=== PATIENT | female | born 1945 | race Two or more races ===

== ENCOUNTER 2017-08-14 08:57 | Inpatient (IN) | payer MEDICAID ==
[~2017-08-14] VITALS: Ht 157.5 cm; Wt 67.1 kg
[~2017-08-14 08:57] MED LIST: AMLODIPINE BESYL5 MG ORAL; AMOX TR-K CLV1 EAC2 ORAL; ASPIRIN-LOW81 MG ORAL; ATORVASTATIN CA10 MG ORAL; AZATHIOPRINE50 MG PO; CALCIUM 1,0001 EAC1 PO; CALCIUM600 M1 PO; DIOVAN160 MG ORAL; FOSAMAX70 MG ORAL; MAGNESIUM250 M3 PO; PREDNISONE2.5 MG ORAL; VITAMIN D1000 UNI1 ORAL
--- NOTE | 2017-08-14 09:29 | Emergency Room Report ---
History of Present Illness General Chief Complaint: General Complaint Source: Patient, Family Member Present Illness HPI Patient is 72-year-old female brought in by family member after increased generalized weakness. Patient prior history of autoimmune hepatitis. She is taking azathioprinel. Patient presented after increased fever. She had reportedly been having subjective fever and increased difficulty breathing. She prior history of pacemaker placement. She had reportedly had not been vomiting. Patient followed by Dr. Stratton Allergies: Coded Allergies: Beef (Verified Allergy, Severe, itchyness, 01/22/16) HYDROCHLOROTHIAZIDE (Verified Allergy, Severe, ELECTROLYTE IMBALANCE, ) Pork (Verified Allergy, Severe, itchyness, 01/22/16) CITRUS AND DERIVATIVES (Unverified Allergy, Mild, ITCHINESS, 07/31/14) Shrimp (Unverified Allergy, Mild, ITCHINESS, 07/31/14) Uncoded Allergies: EGGPLANT (Allergy, Mild, ITCHINESS, 07/31/14) Patient History Past Medical History: see triage record Last Menstrual Period: Post Reviewed Nursing Documentation: PMH: Agreed, PSxH: Agreed Nursing Documentation-PMH Hx Cardiac Problems: Yes - Rhythm irregularity? Pacemaker to left chest, 2016. Hx Hypertension: Yes Hx Cancer: No Hx Gastrointestinal Problems: Yes - Autoimmune hepatitis. Hx Neurological Problems: No Review of Systems All Other Systems: negative except mentioned in HPI Physical Exam Vital Signs Date Time Temp Pulse Resp B/P (MAP) Pulse Ox O2 Delivery O2 Flow Rate FiO2 08/14/17 09:12 98.4 71 19 162/77 99 Room Air Sp02 EP Interpretation: reviewed, normal General Appearance: normal inspection, alert, Chronically Ill Head: atraumatic ENT: normal ENT inspection, hearing grossly normal, normal voice Neck: normal inspection, full range of motion, supple, no bony tend Respiratory: normal inspection, lungs clear, normal breath sounds, no respiratory distress, no retraction, no wheezing Cardiovascular #1: regular rate, rhythm, no edema Gastrointestinal: normal inspection, normal bowel sounds, non tender, soft, no guarding, no hernia Genitourinary: no CVA tenderness Musculoskeletal: normal inspection, back normal, normal range of motion Neurologic: normal inspection, alert, oriented x3, responsive, speech normal Psychiatric: normal inspection, judgement/insight normal, mood/affect normal Skin: normal inspection, normal color, no rash Medical Decision Making Diagnostic Impression: Primary Impression: Generalized weakness Additional Impressions: Autoimmune disease of liver Elevated troponin I level ER Course Patient presented for generalized weakness. Differential diagnosis included was not limited to anemia, urinary tract infection, electrolyte abnormality, hypothyroidism, myocardial infarction, myasthenia gravis, dehydration, among others. Because of complexity of patient's case laboratory testing and imaging studies were ordered.Patient noted have generalized weakness. Patient's laboratory testing was notable for indeterminate level troponin. I EKG interpreted by me showed atrial paced rhythm with rate [address] or T wave changes.Dr. Quinton Stratton was contacted for inpatient management due to primary care physician. Labs Test 08/14/17 10:12 White Blood Count 6.0 K/UL (4.8-10.8) Red Blood Count 3.84 M/UL (4.20-5.40) Hemoglobin 13.2 G/DL (12.0-16.0) Hematocrit 40.2 % (37.0-47.0) Mean Corpuscular Volume 105 FL (80-99) Mean Corpuscular Hemoglobin 34.3 PG (27.0-31.0) Mean Corpuscular Hemoglobin Concent 32.8 G/DL (32.0-36.0) Red Cell Distribution Width 12.5 % (11.6-14.8) Platelet Count 148 K/UL (150-450) Mean Platelet Volume 9.4 FL (6.5-10.1) Neutrophils (%) (Auto) 66.0 % (45.0-75.0) Lymphocytes (%) (Auto) 14.8 % (20.0-45.0) Monocytes (%) (Auto) 16.7 % (1.0-10.0) Eosinophils (%) (Auto) 1.0 % (0.0-3.0) Basophils (%) (Auto) 1.5 % (0.0-2.0) Urine Color Pale yellow Urine Appearance Clear Urine pH 5 (4.5-8.0) Urine Specific [place] 1.005 (1.005-1.035) Urine Protein 2+ (NEGATIVE) Urine Glucose (UA) Negative (NEGATIVE) Urine Ketones Negative (NEGATIVE) Urine Occult Blood Negative (NEGATIVE) Urine Nitrite Negative (NEGATIVE) Urine Bilirubin Negative (NEGATIVE) Urine Urobilinogen Normal MG/DL (0.0-1.0) Urine Leukocyte Esterase Negative (NEGATIVE) Urine RBC 0-2 /HPF (0 - 2) Urine WBC 0-2 /HPF (0 - 2) Urine Squamous Epithelial Cells Few /LPF (NONE/OCC) Urine Bacteria Occasional /HPF (NONE) Sodium Level 130 MMOL/L (136-145) Potassium Level 4.5 MMOL/L (3.5-5.1) Chloride Level 98 MMOL/L (98-107) Carbon Dioxide Level 28 MMOL/L (21-32) Blood Urea Nitrogen 34 mg/dL (7-18) Creatinine 1.5 MG/DL (0.55-1.30) Estimat Glomerular Filtration Rate mL/min (>60) Glucose Level 127 MG/DL (74-106) Lactic Acid Level 1.20 mmol/L (0.66-2.22) Calcium Level 8.1 MG/DL (8.5-10.1) Total Bilirubin 0.9 MG/DL (0.2-1.0) Aspartate Amino Transf (AST/SGOT) 37 U/L (15-37) Alanine Aminotransferase (ALT/SGPT) 29 U/L (12-78) Alkaline Phosphatase 102 U/L (46-116) Total Creatine Kinase 199 U/L (26-308) Creatine Kinase MB 5.0 NG/ML (0.0-3.6) Creatine Kinase MB Relative Index 2.5 Troponin I 0.271 ng/mL (0.000-0.056) Pro-B-Type Natriuretic Peptide 412 pg/mL (0-125) Total Protein 8.4 G/DL (6.4-8.2) Albumin 3.3 G/DL (3.4-5.0) Globulin 5.1 g/dL Albumin/Globulin Ratio 0.6 (1.0-2.7) EKG Diagnostic Results Rate: normal ST Segments: no acute changes Last Vital Signs Date Time Temp Pulse Resp B/P (MAP) Pulse Ox O2 Delivery O2 Flow Rate FiO2 08/14/17 09:12 98.4 71 19 162/77 99 Room Air Status: unchanged Disposition: ADMITTED INPATIENT Condition: Serious Referrals: Quinton Stratton MD (PCP) Robert Ball Aug 14, 2017 09:29
[2017-08-14] MEDS ORDERED: HYDRALAZINE HCL50 MG ORAL (09:34)
[2017-08-14] MEDS ORDERED: TOBRAMYCIN-DEXAM5 M1 BOTH EYES (09:34)
[2017-08-14] MEDS ORDERED: CARVEDILOL6.25 MG ORAL (09:34)
[2017-08-14] MEDS ORDERED: AZATHIOPRINE50 MG PO (09:34)
[2017-08-14] MEDS ORDERED: ACULAR5 ML BOTH EYES (09:34)
[2017-08-14] MEDS ORDERED: BACITRACIN-POL3.5 GM OP (09:34)
[2017-08-14 09:45] VITALS: BP 163/51
--- NOTE | 2017-08-14 10:32 | Diagnostic Imaging Report ---
Indication: Reason For Exam: SOB Technique: XRAY Chest 1v Comparison:None Findings: Heart is normal in size. A pacemaker is in place. There is calcified. There is marked bronchial wall thickening and interstitial change. No pleural fluid. The bones are osteopenic. Degenerative changes noted in both shoulders. Impression: Osteopenia. Mild interstitial change. This could be acute or chronic. Old films would be helpful. Pacemaker. Degenerative change in both shoulders.
[2017-08-14 10:36] LABS: BASOPHILS % (AUTO) 1.5 % (0.0-2.0); LYMPHOCYTES % (AUTO) 14.8 % (20.0-45.0); MEAN CORPUSCULAR HEMOGLOBIN 34.3 PG (27.0-31.0); MEAN CORPUSCULAR HGB CONC 32.8 G/DL (32.0-36.0); MEAN CORPUSCULAR VOLUME 105 FL (80-99); MEAN PLATELET VOLUME 9.4 FL (6.5-10.1); MONOCYTES % (AUTO) 16.7 % (1.0-10.0); PLATELET COUNT 148 K/UL (150-450); RED BLOOD COUNT 3.84 M/UL (4.20-5.40); RED CELL DISTRIBUTION WIDTH 12.5 % (11.6-14.8)
[2017-08-14 10:40] LABS: APPEARANCE,URINE CLEAR; KETONES,URINE NEGATIVE (NEGATIVE); LEUKOCYTE ESTERASE ,URINE NEGATIVE (NEGATIVE); NITRITE,URINE NEGATIVE (NEGATIVE); PH,URINE 5 (4.5-8.0); PROTEIN,URINE 2+ (NEGATIVE); UROBILINOGEN,URINE NORMAL MG/DL (0.0-1.0)
[2017-08-14 10:48] LABS: RBC,URINE 0-2 /HPF (0 - 2)
[2017-08-14 10:49] LABS: BACTERIA,URINE OCCASIONAL /HPF; SQUAMOUS EPITHELIAL CELL,UR FEW /LPF (NONE/OCC); WBC,URINE 0-2 /HPF (0 - 2)
[2017-08-14 11:03] LABS: ALANINE AMINOTRANSFERASE 29 U/L (12-78); ALBUMIN/GLOBULIN RATIO 0.6 (1.0-2.7); ASPARTATE AMINO TRANSFERASE 37 U/L (15-37); CALCIUM 8.1 MG/DL (8.5-10.1); CARBON DIOXIDE 28 MMOL/L (21-32); CHLORIDE 98 MMOL/L (98-107); CREATININE 1.5 MG/DL (0.55-1.30); POTASSIUM 4.5 MMOL/L (3.5-5.1); SODIUM 130 MMOL/L (136-145); TOTAL PROTEIN 8.4 G/DL (6.4-8.2)
[2017-08-14 13:10] VITALS: BP 149/80
[2017-08-14] MEDS ORDERED: Enalaprilat 2.5mg/2ml Inj IV ONE (15:30)
[2017-08-14 16:30] VITALS: BP 123/51
[2017-08-14 20:00] VITALS: BP 139/61
[2017-08-14] MEDS ORDERED: Milk of Magnesia 30ml Ud ORAL PRN (21:00)
[2017-08-14] MEDS ORDERED: Acetaminophen 650 MG SUPP RECTAL PRN (21:00)
[2017-08-14] MEDS ORDERED: Zolpidem 5mg tab ORAL PRN (21:00)
[2017-08-14] MEDS ORDERED: Miralax 17gm pkt ORAL PRN (21:00)
[2017-08-14] MEDS ORDERED: Nitroglycerin Subl 0.4mg tab SL PRN (21:00)
[2017-08-14] MEDS: Tobradex Opth Susp 2.5ml BOTH EYES SCH (23:00)
[2017-08-14] MEDS: Docusate 100mg cap ORAL SCH (23:00)
[2017-08-14] MEDS: HydrALAZINE 50mg tab ORAL SCH (23:00)
[2017-08-14] MEDS: Heparin 5000 units/ml inj SUBQ SCH (23:00)
[2017-08-14] MEDS: Carvedilol 6.25mg Tab ORAL SCH (23:00)
--- NOTE | 2017-08-14 23:08 | History & Physical ---
History and Physical History & Physicial Quinton Stratton MD Aug 14, 2017 23:08
[2017-08-15] VITALS: BP 107/74
[2017-08-15 04:00] VITALS: BP 138/66
[2017-08-15 08:00] VITALS: BP 156/74
[2017-08-15 08:25] LABS: PROTHROMBIN TIME 10.8 SEC (9.30-11.50)
[2017-08-15 08:39] LABS: ALANINE AMINOTRANSFERASE 22 U/L (12-78); ALBUMIN/GLOBULIN RATIO 0.7 (1.0-2.7); ANION GAP 9 mmol/L (5-15); ASPARTATE AMINO TRANSFERASE 39 U/L (15-37); CARBON DIOXIDE 23 MMOL/L (21-32); CHLORIDE 102 MMOL/L (98-107); CHOLESTEROL 165 MG/DL (< 200); CREATININE 1.8 MG/DL (0.55-1.30); MAGNESIUM 1.9 MG/DL (1.8-2.4); POTASSIUM 4.2 MMOL/L (3.5-5.1); SODIUM 134 MMOL/L (136-145); TOTAL PROTEIN 7.8 G/DL (6.4-8.2)
[2017-08-15] MEDS ORDERED: Aspirin Baby 81mg ORAL SCH (09:00)
[2017-08-15] MEDS ORDERED: azaTHIOprine 50 MG TAB ORAL SCH ×2 (09:00)
[2017-08-15] MEDS: Docusate 100mg cap ORAL SCH (09:33)
[2017-08-15] MEDS: HydrALAZINE 50mg tab ORAL SCH ×2 (09:34→13:31)
[2017-08-15] MEDS: Tobradex Opth Susp 2.5ml BOTH EYES SCH ×2 (09:34→13:31)
[2017-08-15] MEDS: Carvedilol 6.25mg Tab ORAL SCH (09:34)
[2017-08-15] MEDS: Heparin 5000 units/ml inj SUBQ SCH (09:36)
[2017-08-15 12:00] VITALS: BP 120/53
[2017-08-15 13:31] VITALS: BP 120/53
--- NOTE | 2017-08-15 14:54 | Discharge Summary ---
Discharge Summary Hospital Course Date of Admission Aug 14, 2017 at 12:07 Date of Discharge Admitting Diagnosis chest pain, generalized weakness, HPI Jennifer Reed is a 72 year old female who was admitted on Aug 14, 2017 at 12:07 for Chest Pain,Generalized Weakness Hospital Course Job: [id number] Last 24 Hour Vital Signs Date Time Temp Pulse Resp B/P (MAP) Pulse Ox O2 Delivery O2 Flow Rate FiO2 08/15/17 13:31 120/53 08/15/17 12:00 97.6 72 18 120/53 95 Room Air 08/15/17 09:34 156/74 08/15/17 09:34 77 156/74 08/15/17 09:33 77 156/74 08/15/17 08:00 77 08/15/17 08:00 97.7 77 18 156/74 96 Room Air 08/15/17 04:00 73 08/15/17 04:00 98.1 92 20 138/66 96 Room Air 08/15/17 00:00 81 08/15/17 00:00 98.2 113 20 107/74 96 08/14/17 23:00 146/52 08/14/17 23:00 79 146/52 08/14/17 23:00 79 146/52 08/14/17 20:00 99.9 78 20 139/61 97 Room Air 08/14/17 20:00 79 08/14/17 17:18 98.4 19 146/52 99 Room Air 08/14/17 16:41 79 08/14/17 16:30 97.6 20 123/51 99 Room Air 08/14/17 15:29 162/64 General: No acute distress, awake and alert HEENT: NCAT, sclera anicteric, PERRL, EOMI. Neck: Supple, no significant jugular venous distention, Lungs: Good inspiratory effort, clear to auscultation bilaterally, no Wheeze or Rales. Heart: Regular rate and rhythm, normal S1/S2, no murmurs, + PPM @ LCW Abdomen: soft, nontender, nondistended. Normoactive bowel sounds. Extremities: No Cyanosis , clubbing or edema. Neuro: A&O x 3, Able to move all extremities Skin: warm, no rashes or lesions Psych: Normal mood and affect Discharge Discharge Disposition Patient was discharged to Home () Discharge Diagnoses: Viral,Quinton MD Aug 15, 2017 14:54
--- NOTE | 2017-08-15 19:45 | History and Physical Report ---
DATE OF ADMISSION: 08/14/2017 CHIEF COMPLAINT: Generalized weakness, fever, and chest discomfort. HISTORY OF PRESENT ILLNESS: This is a 72-year-old female with a past medical history significant for autoimmune hepatitis as well as hypertension, history of bradycardia, status post pacemaker placement [place] [address] Joel Ellis at [facility], who presented to the hospital complaining about chest discomfort and generalized weakness. Denies any hemoptysis or hematochezia. She has fever with increased difficulty breathing. She denies any loss of consciousness. Denies any runny nose or headache. Denies any double vision. Shortly after initial evaluation in the emergency, the patient was noted to have mild elevation in the troponin and subsequently the patient was admitted to the hospital with generalized weakness as well as elevated troponin. PAST MEDICAL HISTORY/PAST SURGICAL HISTORY: As above. History of autoimmune hepatitis, hypertension, history of sick sinus syndrome, and status post pacemaker in 2016. MEDICATIONS: Medications at home is significant for Coreg, amlodipine, , calcium, and hydralazine. ALLERGIES: Beef, citric derivative, eggplant, hydrochlorothiazide, pork, and shrimp. SOCIAL HISTORY: The patient denies any smoking, alcohol, or drugs. She is , very supportive daughter and son. FAMILY HISTORY: Noncontributory. REVIEW OF SYSTEMS: Mostly as above. Denies any dysuria, frequency, hematuria, or hematochezia. Denies any hemoptysis. Denies any loss of consciousness. Complained about fever. Denies any double vision. Complained about generalized body aches. Denies any runny nose, headache, or flu-like symptoms. Denies any chest pain or shortness of breath. PHYSICAL EXAMINATION: VITAL SIGNS: On admission, temperature 98.4, pulse of 71, respirations 16, and blood pressure 152/77. GENERAL: The patient is awake, responsive, in no acute distress. HEAD AND NECK: Pupils are equal and reactive to the light. Extraocular movements are intact. NECK: Supple. No JVD. LUNGS: Clear. No wheezing or rales. HEART: S1, S2. Regular rhythm. Distant heart sounds. No murmur or gallop. ABDOMEN: Soft, nondistended, and nontender. Positive bowel sounds. EXTREMITIES: No cyanosis, clubbing, or edema. NEUROLOGIC: Cranial nerves II through XII are grossly intact. Motor is 5/5 in all extremities. Gait is intact. LABORATORY AND DIAGNOSTIC DATA: On admission, sodium 130, potassium 4.5, chloride 98, bicarbonate 28, BUN 34, creatinine 1.5, glucose is 127, and calcium is 8.1. Lactic acid is 1.20. First troponin 0.271, proBNP of 412. Albumin is 3.3. Total CK is 199. WBC of 6.0, hemoglobin 13, hematocrit 40, and platelet is 148,000. Urinalysis, +3 protein, otherwise all negative. The patient had rapid influenza, negative for influenza A and B. The patient's chest x-ray, osteopenia with mild interstitial changes, this could be acute on chronic. Old film would be helpful, pacemaker, degenerative changes of both shoulder. EKG shows atrial pacing with ventricular rate of 75 with a right bundle-branch as well as left anterior fascicular block, bifascicular block, ventricular rate of 75. ASSESSMENT: 1. Mild elevation of troponin. 2. History of autoimmune hepatitis. 3. Generalized weakness, possible viral syndrome. 4. Hypertension. 5. Anxiety. PLAN: Admit the patient to telemetry. Followup serial cardiac enzymes, 2D echo. Repeat EKG. We will consider ultrasound of the abdomen, discussed with the son at the bedside as well as the daughter over the phone extensively. We will monitor the labs as well as culture in the morning. If the patient's status improves, consider discharge home in a.m. Code status Full Code. DVT prophylaxis. Heparin subcutaneous. Quinton Stratton M.D. DR: ABBY/EVITA JOB#: [id number] CC:
--- NOTE | 2017-08-16 06:45 | Discharge Summary ---
DATE OF ADMISSION: 08/14/2017 DATE OF DISCHARGE: 08/15/2017 HOSPITAL COURSE: This is a 71 years old female with past medical history significant for autoimmune hepatitis and hypertension, who was presented to the hospital complaining about shortness of breath, weakness, and fever. Shortly after initial evaluation, the patient was admitted to the hospital for possible upper respiratory infection and was noted to have mild elevation troponin, however, she denies any chest pain. Throughout the hospital course, the patient's status gradually improved. She had an echocardiogram essentially unremarkable and the patient has been discharged home after a series of cardiac enzymes and to be followed up in my office as an outpatient. FINAL DIAGNOSES: 1. Generalized weakness. 2. Autoimmune hepatitis. 3. Hypertension. 4. Possible viral infection. 5. Mild elevation of troponin, possible demand ischemia. MEDICATIONS ON DISCHARGE: Continue discharge medication list. ACTIVITY: As tolerated. DIET: Cardiac diet. FOLLOWUP: The patient was advised to follow up in my office when she is coming back from her travel trip. Quinton Stratton M.D. DR: BRYANT JOB#: [id number] CC:
--- NOTE | 2017-08-18 15:08 | Diagnostic Imaging Report ---
Indication:Abdominal pain Technique: Grayscale and duplex Doppler imaging of the abdomen performed. Comparison: None Findings: Both kidneys are small and echogenic. Medical renal disease suspected. Please correlate. Liver is grossly unremarkable. There is no ascites. Gallbladder is unremarkable. No biliary ductal dilatation or ascites identified. Spleen is not seen. There is no hydronephrosis. Both kidneys measure between 6 and 7 cm in length. IMPRESSION: Limited evaluation. No acute findings. Suspected medical renal disease. Please correlate clinically.
--- NOTE | 2017-08-29 00:28 | Cardiology Report ---
APPROVED REPORT EKG Measurement Heart [id number] Atrial pacing Right bundle branch block Left anterior fascicular block Bifascicular block Abnormal ECG
--- NOTE | 2017-08-29 12:50 | Cardiology Report ---
APPROVED REPORT EXAM: Two-dimensional and M-mode echocardiogram with Doppler and color Doppler. INDICATION Abnormal cardiac function study M-Mode DIMENSIONS IVSd1.2 (0.7-1.1cm)Left Atrium (MM)2.9 (1.6-4.0cm) LVDd4.3 (3.5-5.6cm)Aortic Root2.9 (2.0-3.7cm) PWd1.3 (0.7-1.1cm)Aortic Cusp Exc.1.8 (1.5-2.0cm) LVDs2.6 (2.5-4.0cm) PWs1.9 cm Normal left ventricular chamber size, systolic function and wall motion. Left ventricular ejection fraction estimated to be 70 %. Mild left ventricular hypertrophy by 2-D. Anterior Echo-free space, may be due to pericardial fat or effusion. Mild left atrial enlargement. Right cardiac chamber sizes are within normal limits. Mild focal aortic valve sclerosis with adequate cusp excursion. Mildly thickened mitral valve leaflets with normal excursion. Mitral annulus and aortic root calcification. Normal pulmonic valve structure. Normal tricuspid valve structure. IVC at normal size with physiologic collapse. Pacemaker wire present in the right side chambers. A color flow and spectral Doppler study was performed and revealed: Trace mitral regurgitation. Mitral diastolic velocities suggest reduced left ventricular relaxation c/w mild LV diastolic dysfunction (Grade I). Trace tricuspid regurgitation. Tricuspid systolic velocities suggests peak right ventricular systolic pressure of 25 mmHg. Mild pulmonic regurgitation present.
== END 2017-08-15 15:15 | disposition home or self-care (01) | DRG 861 ==
LOC: EMR 09:26 → 2E 12:07 → EDBEDREQ 15:17 → 2E 23:46
DX: R53.1 Weakness (principal); I24.8 Other forms of acute ischemic heart disease; K75.4 Autoimmune hepatitis; I10 Essential (primary) hypertension; B34.9 Viral infection, unspecified; Z95.0 Presence of cardiac pacemaker; F41.9 Anxiety disorder, unspecified
CPT/HCPCS: 36415; 71010; 76700; 80053; 81003; 82465; 82550; 82553; 83605; 83735; 83880; 84100; 84484; 85025; 85610; 85730; 86710; 87040; 93005; 93306; 99285